=== PATIENT | male | born 1950 | race Caucasian/White ===

== ENCOUNTER 2022-08-23 21:22 | Emergency (ER) | payer OTHER ==
[~2022-08-23] VITALS: Ht 198.1 cm; Wt 84.5 kg
[2022-08-23 21:30] VITALS: BP 128/70
[2022-08-23] MEDS ORDERED: bacitracin 15gm ointment TP ONE (22:00)
--- NOTE | 2022-08-23 22:14 | NUR ---
WOUND IRR TOPICAL APPLIED DRESSING APPLIED
== END 2022-08-23 22:27 | disposition home or self-care (01) ==
LOC: ER 21:24
DX: S81.802A Unspecified open wound, left lower leg, initial encounter (principal); I51.9 Heart disease, unspecified; X58.XXXA Exposure to other specified factors, initial encounter; Y93.89 Activity, other specified; Y92.89 Other specified places as the place of occurrence of the external cause; Y99.8 Other external cause status
CPT/HCPCS: 99284